=== PATIENT | female | born 1955 | race Caucasian/White ===

== ENCOUNTER 2023-06-05 09:45 | Emergency (ER) | payer OTHER, SELFPAY ==
[2023-06-05] VITALS (9 sets, daily range): BP systolic 141–162; BP diastolic 84–85; PULSE 59–75; RESP 18; TEMP 36.6; O2SAT 93–99; BMI 29.7
--- NOTE | 2023-06-05 10:36 | CRLHL7_ITS ---
For Patients: As a result of the Century Cures Act, medical imaging exams and procedure reports are released immediately into your electronic medical record. You may view this report before your referring provider. If you have questions, please contact your health care provider. INDICATION: Lower abdominal pain TECHNIQUE: CT abdomen and pelvis acquired with 90 cc Isovue 370 IV contrast. COMPARISON: CT abdomen/pelvis report on 05/15/2022 FINDINGS: The visualized portions of the lung bases are clear. The liver, gallbladder, spleen, pancreas and adrenal glands are unremarkable. Stable left pelvic kidney. Right kidney is normally positioned. There is and 8 mm nonobstructing stone within the lower pole of the right kidney. No hydroureteronephrosis. There is prominence of the extrarenal left renal collecting system without hydronephrosis. The bladder is unremarkable. Uterus and bilateral adnexa are unremarkable. Small hiatal hernia. No evidence of bowel obstruction or inflammation. No lymphadenopathy. There is no intraperitoneal free air or fluid. Diastasis of the rectus. The visualized osseous structures are without acute fracture or malalignment. There are mild degenerative changes throughout the spine. IMPRESSION: 1. No CT evidence of an acute process involving the abdomen or pelvis. 2. Incidental findings as detailed above. Please note that all CT scans at this facility use dose modulation, iterative reconstruction, and/or weight-based dosing when appropriate to reduce radiation dose to as low as reasonably achievable. Dictated by Doroteo Temple MD @ 06/05/2023 1:14:56 PM (Electronically Signed)
--- NOTE | 2023-06-05 10:36 | CRLHL7_ITS ---
For Patients: As a result of the Cures Act, medical imaging exams and procedure reports are released immediately into your electronic medical record. You may view this report before your referring provider. If you have questions, please contact your health care provider. INDICATION: Reflux COMPARISON: None. TECHNIQUE: 1 view chest radiograph. FINDINGS: Lung volumes are good. No focal consolidations. No pulmonary edema. No pleural effusion. No pneumothorax. No pneumomediastinum. Normal cardiomediastinal silhouette. Bones: Degenerative bony proliferation along the underside of the right acromion. IMPRESSION: Lungs clear. No acute appearing abnormalities. Dictated by Bailey Griffiths MD @ 06/05/2023 12:01:23 PM (Electronically Signed)
--- NOTE | 2023-06-05 10:39 | ED_ITS ---
HPI - General Adult General Time Seen by Provider: 10:39 Date Seen: 06/05/23 Chief complaint: Nausea/Vomiting Stated complaint: Flu, nausea, abdominal pain Time Seen by Provider: 06/05/23 10:02 Source: patient Mode of arrival: ambulatory Limitations: no limitations History of Present Illness HPI narrative: The patient is a 67-year-old female diabetic, reports 5-6 days of not feeling well. She reports heartburn symptoms which is unusual for her with some discomfort in her substernal area and burning in her throat area. She describes some lower abdominal discomfort, has had vomiting and abdominal pain, no hematemesis no melena hematochezia. The patient does report she has had no chills or fever. No dysuria. Does report some lower abdominal discomfort that is been intermittent and spasmodic. She denies chest pain, denies shortness of breath, denies diaphoresis. Has vomited. Here with her significant other, they live in [place]. Related Data Home Medications Medication Instructions Recorded Confirmed blood sugar diagnostic (Accu-Chek 06/05/23 06/05/23 Guide test strips) blood-glucose meter (Accu-Chek 06/05/23 06/05/23 Guide Me Glucose Meter) bupropion HCl 150 mg 24 hr tablet, 150 mg PO DAILY 06/05/23 06/05/23 extended release lancets (Accu-Chek Softclix 06/05/23 06/05/23 Lancets) rosuvastatin 20 mg tablet 20 mg PO QPM 06/05/23 06/05/23 semaglutide 1 mg/dose (4 mg/3 mL) 1 mg subcut 06/05/23 subcutaneous pen injector (Ozempic) trazodone 100 mg tablet 100 mg PO QPM 06/05/23 06/05/23 Allergies Allergy/AdvReac Type Severity Reaction Status Date / Time No Known Drug Allergies Allergy Verified 06/05/23 09:53 Review of Systems Status of ROS: Reports: 10 or more systems reviewed and unremarkable except as noted in History and below Exam Narrative: Exam Narrative: Objective: In general patient is in mild distress and discomfort alert orient x3, noncyanotic. Vital signs look to show if her to be afebrile, blood pressure 141/85 O2 sat 97% on room air pulse 75 and regular. HEENT shows dry mucous membranes neck is supple, patient is alert orient x3 Lungs neck is supple Chest clear Heart rhythm regular no murmur Abdomen benign soft nontender no mass or peritonitis Extremities good perfusion neurologic nonfocal no swelling of the lower extremities. Skin periphery warm and dry, no skin rashes noted. Const: Vital Signs, click to edit/add: Vital Signs - 24 hr 06/05/23 09:48 06/05/23 10:36 06/05/23 11:31 Temperature 97.8 F Pulse Rate 59 L Pulse Rate [Right Pulse Oximeter] 75 Respiratory Rate 18 Blood Pressure 155/85 H Blood Pressure [Ri ght Upper Arm] 141/85 H Pulse Oximetry 97 93 94 Oxygen Delivery Me thod Room Air 06/05/23 11:32 06/05/23 11:45 06/05/23 12:00 Temperature Pulse Rate 59 L 64 62 Pulse Rate [Right Pulse Oximeter] Respiratory Rate Blood Pressure Blood Pressure [Ri ght Upper Arm] Pulse Oximetry 93 97 95 Oxygen Delivery Me thod 06/05/23 12:01 06/05/23 12:32 06/05/23 12:45 Temperature Pulse Rate 63 69 61 Pulse Rate [Right Pulse Oximeter] Respiratory Rate Blood Pressure 162/84 H Blood Pressure [Ri ght Upper Arm] Pulse Oximetry 95 99 94 Oxygen Delivery Me thod Course Vital Signs Vital signs: Initial Vital Signs Temperature 97.8 F 06/05/23 09:48 Temperature Source Temporal Artery Scan 06/05/23 09:48 Pulse Rate 75 06/05/23 09:48 Respiratory Rate 18 06/05/23 09:48 Blood Pressure 141/85 H 06/05/23 09:48 Blood Pressure Mean 103 06/05/23 09:48 Blood Pressure Position Sitting 06/05/23 09:48 Pulse Oximetry 97 06/05/23 09:48 Oxygen Delivery Method Room Air 06/05/23 09:48 Vital Signs Temperature 97.8 F 06/05/23 09:48 Pulse Rate 75 06/05/23 09:48 Respiratory Rate 18 06/05/23 09:48 Blood Pressure 141/85 H 06/05/23 09:48 Pulse Oximetry 97 06/05/23 09:48 Oxygen Delivery Method Room Air 06/05/23 09:48 Temperature 97.8 F 06/05/23 09:48 Pulse Rate 61 06/05/23 12:45 Respiratory Rate 18 06/05/23 09:48 Blood Pressure 162/84 H 06/05/23 12:01 Pulse Oximetry 94 06/05/23 12:45 Oxygen Delivery Method Room Air 06/05/23 09:48 Medications Administered Medications: Discontinued Medications Generic Name Dose Route Start Last Admin Trade Name Jayleen PRN Reason Stop Dose Admin Sodium Chloride 1,000 mls @ 6,000 mls/hr 06/05/23 10:45 06/05/23 12:38 0.9 % Sodium Chloride 1000 Ml IV 06/05/23 10:54 Infused .Q10M ANTOINETTE Infusion Lorazepam 0.5 mg 06/05/23 10:35 06/05/23 11:22 Lorazepam 2 Mg/Ml Inj IVP 06/05/23 10:36 0.5 mg ONCE ONE Administration Morphine Sulfate 2 mg 06/05/23 10:45 06/05/23 11:24 Morphine 2 Mg/Ml Inj IVP 06/05/23 10:46 2 mg ONCE ONE Administration Omeprazole 20 mg 06/05/23 10:38 06/05/23 11:20 Omeprazole [address] PO 06/05/23 10:39 20 mg ONCE ONE Administration Medical Decision Making MDM Narrative Medical decision making narrative: [age] year white female diabetic who presents with heartburn, and lower abdominal discomfort and nausea and vomiting and diarrhea. This point patient certainly could have some type of viral illness will check COVID/influenza/RSV. Will also check chest x-ray and a CT scan of her abdomen given her diabetic status or persistent symptoms or 5-6 days. She does have some lower abdominal discomfort and would check for diverticulitis even though her examination is fairly reassuring. Will also check a chest x-ray given she has heartburn, and also do acute coronary syndrome rule out with a troponin EKG and cardiac monitoring. Will give her a small dose of morphine and Ativan to see if it helped the nausea and discomfort. And check labs as above. Disposition pending findings. She and her significant other comfortable plan. the addendum 1:34 p.m.: Patient's abdominal CT is unremarkable, chest x-ray unremarkable by my read, EKG looks reassuring. Her troponin is negative, laboratory studies show negative CRP, lactate is normal troponin negative, white count is normal, ER profile is unremarkable glucose is 262 COVID involve her viral studies are negative. This point suspect she may have some type of viral illness would recommend fluids rest observation Tylenol Advil as needed, return tourniquet primary care in the next few days return here sooner problems or concerns for re-evaluation here is reassuring. Her CT looks reassuring. She was comfortable plan thanks I think also just in case the patient could have an early gastritis would have her take Prilosec 20 mg daily for the next couple of weeks, recheck with regular doctor next few days. Her hemoglobin was normal at 15.9 Lab Data Labs: Lab Results 06/05/23 06/05/23 Range/Units 11:21 11:23 WBC 5.87 (4.50-11.00) K/uL RBC 5.17 (4.00-5.20) m/uL Hgb 15.9 (12.0-16.0) gm/dL Hct 46.3 (33.0-51.0) % MCV 90 (80-100) fL MCH 31 (26-34) pg MCHC 34 (32-36) gm/dL RDW Coeff of Ladi 12.5 (11.5-15.5) % Plt Count 195 (140-440) K/uL Neut % (Auto) 67.7 (42.0-72.0) % Lymph % (Auto) 23.0 (20-44) % [place] % (Auto) 8.5 (0.0-11.0) % Eos % (Auto) 0.5 (0.0-7.0) % Baso % (Auto) 0.3 (0.0-3.0) % Neut # (Auto) 3.97 (1.7-7.0) K/uL Lymph # (Auto) 1.35 (0.90-2.90) K/uL [place] # (Auto) 0.50 (0.00-0.90) K/UL Eos # (Auto) 0.03 (0.00-0.50) K/uL Baso # (Auto) 0.02 (0.00-0.30) K/uL Abs Immat Gran (auto) 0.00 (0.00-0.30) K/uL Imm/Tot Granulo (auto) 0.0 % INR 0.96 (0.91-1.10) Sodium 136 (135-149) mmol/L Potassium 3.8 (3.6-5.1) mmol/L Chloride 101 (96-114) mmol/L Carbon Dioxide 25 (20-32) mmol/L Anion Gap 10 (7-15) mEq/L BUN 11 (7-30) mg/dL Creatinine 0.6 (0.5-1.5) mg/dL Estimated Creat Clear 52.51 Estimated GFR 100 ml/min Glucose 262 H (60-115) mg/dL Lactate 1.1 (0.5-1.9) mmol/L Calcium 9.8 (8.4-10.6) mg/dL Total Bilirubin 1.1 (0.1-1.5) mg/dL Direct Bilirubin 0.2 (0.0-0.5) mg/dL AST 24 (12-35) U/L ALT 23 (4-35) U/L Alkaline Phosphatase 80 (40-150) U/L C-Reactive Protein < 0.5 L (0.5-1.0) mg/dL NT-Pro-B Natriuret Pep 167 pg/mL Total Protein 7.8 (6.0-8.3) g/dL Albumin 4.7 (3.3-5.0) g/dL Amylase 73 (18-89) U/L SARS-CoV-2 (PCR) Negative SARS-CoV-2 (Negative) Influenza Type A (PCR) Negative PCR FLU A (Negative) Influenza Type B (PCR) Negative PCR FLU B (Negative) RSV (PCR) Negative PCR RSV (Negative) POC Troponin I 0.01 (0.01-0.04) ng/ml Discharge Plan Discharge Clinical Impression: Diabetes, Diarrhea, Nausea & vomiting Patient Disposition: Home w/ Parent or Adult Condition: Improved Instructions: Acute Nausea and Vomiting (ED) Additional Instructions: Rest, fluids, light activity, Tylenol Advil as needed, recheck with your primary care doctor the next few days. Return to ED as needed. Suspect he may have some type of viral illness that needs just time to clear. The CT scan of your abdomen was normal as was your chest x-ray and lab studies, with the exception of her glucose which was 262. . Activity Level: Light activity Discharge Diet: Diabetic Prescriptions: No Action (DME) blood-glucose meter [Accu-Chek Guide Me Glucose Mtr] Misc MISCELLANEOUS DIRECTED (DME) Accu-Chek Guide test strips Strip MISCELLANEOUS BID (DME) lancets [Accu-Chek Softclix Lancets] Misc MISCELLANEOUS Patient Comments: [NO ORIGINAL SIG] trazodone 100 mg tablet 100 mg PO QPM rosuvastatin 20 mg tablet 20 mg PO QPM bupropion HCl 150 mg tablet extended release 24 hr 150 mg PO DAILY Ozempic 1 mg/dose (4 mg/3 mL) pen injector 1 mg subcut Stand Alone Forms: [facility] Info Instructions
[2023-06-05] MEDS: OMEPRAZOLE 20 MG CAPSULE DR PO (11:20)
[2023-06-05] MEDS: 0.9 % SODIUM CHLORIDE 1000 ml 1,000 ML 6000 ML IV (11:22)
[2023-06-05] MEDS: LORazepam 2 MG/ML inj 0.5 MG IVP (11:22)
[2023-06-05] MEDS: MORPHINE 2 MG/ML inj IVP (11:24)
[2023-06-05 11:27] LABS: Lactate* 1.1 mmol/L (0.5-1.9)
[2023-06-05 11:31] LABS: Basophils Absolute Auto 0.02 K/uL (0.00-0.30); Basophils Percent Auto 0.3 % (0.0-3.0); Eosinophils Absolute Auto 0.03 K/uL (0.00-0.50); Eosinophils Percent Auto 0.5 % (0.0-7.0); Hematocrit 46.3 % (33.0-51.0); Hemoglobin* 15.9 gm/dL (12.0-16.0); Lymphocytes Absolute Auto 1.35 K/uL (0.90-2.90); Mean Corpuscular HGB Conc 34 gm/dL (32-36); Mean Corpuscular Hemoglobin 31 pg (26-34); Mean Corpuscular Volume 90 fL (80-100); Monocytes Percent Auto 8.5 % (0.0-11.0); Neutrophils Absolute Auto 3.97 K/uL (1.7-7.0); Neutrophils Percent Auto 67.7 % (42.0-72.0); Platelet Count* 195 K/uL (140-440); RDW Coefficient of Variation % 12.5 % (11.5-15.5); Red Blood Count 5.17 m/uL (4.00-5.20); White Blood Count* 5.87 K/uL (4.50-11.00)
[2023-06-05 11:36] LABS: Slide Review Reflex No
[2023-06-05 11:45] LABS: Albumin* 4.7 g/dL (3.3-5.0)
[2023-06-05 11:46] LABS: Chloride* 101 mmol/L (96-114); Potassium* 3.8 mmol/L (3.6-5.1); Sodium* 136 mmol/L (135-149)
[2023-06-05 11:47] LABS: Troponin, Point-of-Care* 0.01 ng/ml (0.01-0.04)
[2023-06-05 11:47] LABS: INR 0.96 (0.91-1.10); Prothrombin Time 13.3 Seconds
[2023-06-05 11:48] LABS: Alkaline Phosphatase* 80 U/L (40-150); Aspartate Amino Transferase* 24 U/L (12-35); Bilirubin Direct* 0.2 mg/dL (0.0-0.5); Bilirubin Total* 1.1 mg/dL (0.1-1.5); Total Protein* 7.8 g/dL (6.0-8.3)
[2023-06-05 11:49] LABS: Alanine Aminotransferase* 23 U/L (4-35); Amylase* 73 U/L (18-89); Creatinine* 0.6 mg/dL (0.5-1.5); Est. Creatinine Clearance* 52.51; Estimated Glomerular Filt Rate 100 ml/min
[2023-06-05 11:50] LABS: Anion Gap 10 mEq/L (7-15); Blood Urea Nitrogen* 11 mg/dL (7-30); Calcium* 9.8 mg/dL (8.4-10.6); Carbon Dioxide* 25 mmol/L (20-32); Glucose* 262 mg/dL (60-115)
[2023-06-05 11:55] LABS: C Reactive Protein* < 0.5 mg/dL (0.5-1.0)
[2023-06-05 11:59] LABS: NT Pro B Type NatriureticPept* 167 pg/mL
[2023-06-05 12:11] LABS: PCR FLU A Negative PCR FLU A (Negative); PCR FLU B Negative PCR FLU B (Negative); PCR RSV Negative PCR RSV (Negative)
[2023-06-05 12:12] LABS: SARS PCR* Negative SARS-CoV-2 (Negative)
== END 2023-06-05 13:51 | disposition home or self-care (01) ==
PROVIDERS: Emergency Provider Family Medicine; PCP Internal Medicine
DX: R19.7 Diarrhea, unspecified (principal); E11.9 Type 2 diabetes mellitus without complications; R11.2 Nausea with vomiting, unspecified
CPT/HCPCS: 36415; 71045; 74177; 80048; 80076; 81001; 82150; 83605; 83880; 84484; 85025; 85610; 86140; 87086; 87631; 93005; 94761; 96361; 96374; 96375; 99283; 99284; 99285; A9270; J2060; J2270; J7030; Q9967

== ENCOUNTER 2024-06-17 13:46 | Emergency (ER) | payer OTHER, SELFPAY ==
[2024-06-17 13:52] VITALS: BP 110/63; PULSE 66; RESP 12; TEMP 36.8; O2SAT 96; BMI 29.4
[2024-06-17 14:42] LABS: Appearance Urine Cloudy (Clear); Bilirubin Urine Negative (Negative); Blood Urine 3+ (Negative); Color Urine Red (Yellow); Glucose Urine Negative (Negative); Ketones Urine Negative (Negative); Leukocyte Esterase Urine 3+ (Negative); Nitrite Urine Negative (Negative); Protein Urine 2+ (Negative); pH Urine 6.5 (5.0-8.5)
[2024-06-17 15:09] LABS: Bacteria Urine Few; RBC Urine >100 (0-2); Squamous Epithelial Cell Urine Few (None-Few); WBC Urine >100 (0-5)
--- NOTE | 2024-06-17 15:20 | CRLHL7_ITS ---
For Patients: As a result of the Century Cures Act, medical imaging exams and procedure reports are released immediately into your electronic medical record. You may view this report before your referring provider. If you have questions, please contact your health care provider. INDICATION: Flank pain hematuria Comparison 06/05/2023. TECHNIQUE: CT abdomen and pelvis without contrast. COMPARISON: None. FINDINGS: Lower chest: Subpleural reticular ground-glass opacities may represent mild fibrosis. Liver: Normal in size and attenuation. No suspicious masses. Gallbladder and bile ducts: No stones or inflammation. No biliary dilatation. Pancreas: Unremarkable. No mass or inflammation. Spleen: Normal in size. No masses. Adrenal glands: Normal in size. No nodules. Kidneys: Right kidney is unremarkable. Left pelvic kidney appears unchanged there is prominence the left renal pelvis with urothelial thickening there is no obstructing stones. GI tract: Unremarkable. Normal in caliber. No sign of mass or inflammation. Abundant stool in the colon diverticulosis Vasculature: Abdominal aorta is normal in caliber. Lymph nodes: No lymphadenopathy. Peritoneum/Abdominal Wall: Unremarkable. No sign of mass or infiltration. No free air or significant free fluid. Pelvis: Unremarkable. No pelvic masses. Bones: Unremarkable for age. IMPRESSION: 1. No acute findings. Left pelvic kidney demonstrates prominence of the left renal pelvis no obstructing stone or urothelial thickening correlate for UTI. Please note that all CT scans at this facility use dose modulation, iterative reconstruction, and/or weight-based dosing when appropriate to reduce radiation dose to as low as reasonably achievable. Dictated by Rebekah Chogn MD @ 06/17/2024 3:53:59 PM (Electronically Signed)
--- NOTE | 2024-06-17 15:59 | ED_ITS ---
HPI - General Adult General Chief complaint: Urogenital Problems, Female Stated complaint: [place] urine, back pain, bloating Time Seen by Provider: 06/17/24 15:55 Source: patient Mode of arrival: ambulatory Limitations: no limitations History of Present Illness HPI narrative: 68-year-old female presenting today with concerns about a UTI. Patient states that for about a week and a half she has had suprapubic cramping, dysuria. She denies fevers, chills, nausea or vomiting. Four days ago she noticed some red specks in her urine in today noticed pink on her tissue. She continues to experience UTI symptoms. And she is also feeling some right flank discomfort. She does have a history of kidney stones in the past. She denies any diarrhea or constipation. She denies pain with eating. Appetite has been normal. Past medical history significant for diabetes, depression, hyperlipidemia. Related Data Home Medications ?Medication ?Instructions ?Recorded ?Confirmed blood sugar diagnostic (Accu-Chek 06/05/23 06/17/24 Guide test strips) blood-glucose meter (Accu-Chek 06/05/23 06/17/24 Guide Me Glucose Meter) bupropion HCl 150 mg 24 hr tablet, 150 mg PO DAILY 06/05/23 06/17/24 extended release lancets (Accu-Chek Softclix 06/05/23 06/17/24 Lancets) rosuvastatin 20 mg tablet 20 mg PO QPM 06/05/23 06/17/24 semaglutide 1 mg/dose (4 mg/3 mL) 1 mg subcut 06/05/23 subcutaneous pen injector (Ozempic) trazodone 100 mg tablet 100 mg PO QPM 06/05/23 06/17/24 insulin aspart U-100 100 unit/mL 8 unit subcut 3XD 06/17/24 06/17/24 (3 mL) subcutaneous pen (Novolog FlexPen U-100 Insulin aspart) insulin glargine 100 unit/mL (3 24 unit subcut QPM 06/17/24 06/17/24 mL) subcutaneous pen (Lantus Solostar U-100 Insulin) rosuvastatin 40 mg tablet 40 mg PO DAILY 06/17/24 06/17/24 Allergies Allergy/AdvReac Type Severity Reaction Status Date / Time No Known Drug Allergies Allergy Verified 06/17/24 14:00 Review of Systems Status of ROS: Reports: 10 or more systems reviewed and unremarkable except as noted in History and below [facility] Social History Smoking Status: Never smoker Do you use any of these nicotine containing products: None How often do you have a drink containing alcohol: monthly or less How often do you have six or more drinks on one occasion: Never AUDIT-C Alcohol total score: 1 Non-prescribed substance use: denies use Exam Narrative: Exam Narrative: Overweight, well-developed patient in no acute distress. Alert and oriented. Answers questions appropriately. Mood and affect are appropriate. Thoughts are goal oriented and rational. No tangential or magical thinking noted. Patient speaks in full sentences without needing to catch her breath. HEENT: Normocephalic atraumatic. Pupils are equally round reactive to light. Extraocular muscles are intact. Conjunctivae are moist without any icterus noted. Moist mucous membranes. Cardiovascular: Heart is regular rate and rhythm S1 and S2 are present without any murmurs. Lungs: Clear to auscultation bilaterally no wheezes rhonchi or rales are appreciated. Patient takes deep breaths without any discomfort. Abdomen: Soft and nontender nondistended with normal bowel sounds. Difficult to assess for organomegaly secondary to body habitus. No CVA tenderness. Skin: Well perfused without any obvious rashes. Const: Vital Signs, click to edit/add: Vital Signs - 24 hr 06/17/24 13:52 Temperature 98.3 F Pulse Rate [Pulse Oximeter] 66 Respiratory Rate 12 Blood Pressure [Ri ght Upper Arm] 110/63 Pulse Oximetry 96 Oxygen Delivery Me thod Room Air Course Course ED Course: UA is grossly positive for signs of infection. Also showing 3+ blood with greater than 100 rbc's. Because of this abdominal CT was done to rule out s tones: No kidney stones visualized. Does have a slight abnormality of the left kidney consistent with potential UTI. This is not correlate with per where her flank pain is which is on the right side. Vital Signs Vital signs: Initial Vital Signs Temperature 98.3 F 06/17/24 13:52 Temperature Source Temporal Artery Scan 06/17/24 13:52 Pulse Rate 66 06/17/24 13:52 Respiratory Rate 12 06/17/24 13:52 Blood Pressure 110/63 06/17/24 13:52 Blood Pressure Mean 78 06/17/24 13:52 Pulse Oximetry 96 06/17/24 13:52 Oxygen Delivery Method Room Air 06/17/24 13:52 Vital Signs Temperature 98.3 F 06/17/24 13:52 Pulse Rate 66 06/17/24 13:52 Respiratory Rate 12 06/17/24 13:52 Blood Pressure 110/63 06/17/24 13:52 Pulse Oximetry 96 06/17/24 13:52 Oxygen Delivery Method Room Air 06/17/24 13:52 Temperature 98.3 F 06/17/24 13:52 Pulse Rate 66 06/17/24 13:52 Respiratory Rate 12 06/17/24 13:52 Blood Pressure 110/63 06/17/24 13:52 Pulse Oximetry 96 06/17/24 13:52 Oxygen Delivery Method Room Air 06/17/24 13:52 Medical Decision Making MDM Narrative Medical decision making narrative: 68-year-old female with UTI. Rocephin IM given in the ED today. Will treat with Macrobid b.i.d.. Follow-up with PCP in 5-7 days. Lab Data Lab results reviewed: Yes I reviewed the patient's lab results Labs: Lab Results 06/17/24 Range/Units Unknown Urine Color Red A (Yellow) Urine Appearance Cloudy A (Clear) Urine pH 6.5 (5.0-8.5) Ur Specific [place] 1.020 (1.000-1.030) Urine Protein 2+ A (Negative) Urine Glucose (UA) Negative (Negative) Urine Ketones Negative (Negative) Urine Blood 3+ A (Negative) Urine Nitrite Negative (Negative) Urine Bilirubin Negative (Negative) Urine Urobilinogen 1.0 (0.2-1.0) Ur Leukocyte Esterase 3+ A (Negative) Urine RBC >100 A (0-2) Urine WBC >100 A (0-5) Ur Squamous Epith Cells Few (None-Few) Urine Bacteria Few A (None) Imaging Data CT scan - abdomen: Attestation: I have reviewed the pertinent imaging results. Radiologist's impression: CT abdomen and pelvis without contrast. COMPARISON: None. FINDINGS: Lower chest: Subpleural reticular ground-glass opacities may represent mild fibrosis. Liver: Normal in size and attenuation. No suspicious masses. Gallbladder and bile ducts: No stones or inflammation. No biliary dilatation. Pancreas: Unremarkable. No mass or inflammation. Spleen: Normal in size. No masses. Adrenal glands: Normal in size. No nodules. Kidneys: Right kidney is unremarkable. Left pelvic kidney appears unchanged there is prominence the left renal pelvis with urothelial thickening there is no obstructing stones. GI tract: Unremarkable. Normal in caliber. No sign of mass or inflammation. Abundant stool in the colon diverticulosis Vasculature: Abdominal aorta is normal in caliber. Lymph nodes: No lymphadenopathy. Peritoneum/Abdominal Wall: Unremarkable. No sign of mass or infiltration. No free air or significant free fluid. Pelvis: Unremarkable. No pelvic masses. Bones: Unremarkable for age. IMPRESSION: 1. No acute findings. Left pelvic kidney demonstrates prominence of the left renal pelvis no obstructing stone or urothelial thickening correlate for UTI. Discharge Plan Discharge Clinical Impression: Urinary tract infection Patient Disposition: Home, Self-Care Condition: Stable Additional Instructions: Take all antibiotics as prescribed. Follow-up with your primary care provider in 5-7 days. Follow-up sooner if you feel like you are not improving or if you are getting worse. If you develop fever or vomiting, return to the emergency department. Macrobid 100 mg p.o. b.i.d. for 5 days sent to [facility]. Prescriptions: No Action insulin aspart U-100 [Novolog FlexPen U-100 Insulin] 100 unit/mL (3 mL) insulin pen 8 unit subcut 3XD rosuvastatin 40 mg tablet 40 mg PO DAILY insulin glargine [Lantus Solostar U-100 Insulin] 100 unit/mL (3 mL) insulin pen 24 unit subcut QPM (DME) blood-glucose meter [Accu-Chek Guide Me Glucose Mtr] Mis MISCELLANEOUS DIRECTED (DME) Accu-Chek Guide test strips Strip MISCELLANEOUS BID (DME) lancets [Accu-Chek Softclix Lancets] [facility] MISCELLANEOUS Patient Comments: [NO ORIGINAL SIG] trazodone 100 mg tablet 100 mg PO QPM rosuvastatin 20 mg tablet 20 mg PO QPM bupropion HCl 150 mg tablet extended release 24 hr 150 mg PO DAILY Ozempic 1 mg/dose (4 mg/3 mL) pen injector 1 mg subcut Follow Up/Referrals: Louisa Price MD [Primary Care Provider] - Stand Alone Forms: [facility] Info Instructions
[2024-06-17] MEDS: cefTRIAXone 1 GM VIAL IM (16:26)
[2024-06-17] MEDS: LIDOCAINE 1% 5 ml (pf) 5 ML VIAL 2.1 ML IM (16:27)
== END 2024-06-17 16:35 | disposition home or self-care (01) ==
LOC: ED 16:38
PROVIDERS: Emergency Provider Family Medicine; PCP Internal Medicine
DX: N39.0 Urinary tract infection, site not specified (principal)
CPT/HCPCS: 74176; 80048; 81001; 81003; 81025; 85025; 86140; 87086; 87186; 96372; 99284; J0696

== ENCOUNTER 2025-01-19 16:28 | Outpatient (CLI) | payer OTHER, SELFPAY | END 2025-01-19 16:29 | disposition home or self-care (01) | LOC: NFLDREF 01-21 02:39 | PROVIDERS: Visit Provider Nurse Practitioner Family | DX: R39.89 Other symptoms and signs involving the genitourinary system (principal); N39.0 Urinary tract infection, site not specified | CPT/HCPCS: 87086 ==

== ENCOUNTER 2025-02-08 17:38 | Outpatient (CLI) | payer OTHER, SELFPAY | END 2025-02-08 17:39 | disposition home or self-care (01) | LOC: NFLDREF 02-11 13:12 | PROVIDERS: Visit Provider Physician Assistant Surgical | DX: R30.0 Dysuria (principal); N39.0 Urinary tract infection, site not specified | CPT/HCPCS: 87086 ==

== ENCOUNTER 2025-03-12 19:08 | Outpatient (CLI) | payer OTHER, SELFPAY | END 2025-03-12 19:09 | disposition home or self-care (01) | LOC: NFLDREF 03-17 18:38 | PROVIDERS: Visit Provider Family Medicine | DX: N39.0 Urinary tract infection, site not specified (principal); R35.0 Frequency of micturition | CPT/HCPCS: 87086; 87186 ==